=== PATIENT | female | born 1995 | race African-American/Black ===

== ENCOUNTER 2017-06-02 16:01 | Emergency (ER) | payer OTHER ==
[~2017-06-02 16:01] MED LIST: ALBU8I INH; FEXO180 PO; FLUT1SPR9 EACH NARE; MONT10TA2 PO
[2017-06-02 16:02] VITALS: BP 131/86; PULSE 69; RESP 12; TEMP 98.4; O2SAT 98
--- NOTE | 2017-06-02 18:24 | PD ---
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 Patient denies any urinary symptoms. No abdominal pain or fevers. Started in november. Patient rates her pain a 4 out of 10. There are no alleviating or exacerbating factors. Patient denies any recent sexual contact. She further denies any fever, chills , or cold clubbing, chest pain or shortness of breath. She reports a history of bacterial vaginosis and states that she was treated for this in the past. [facility] Past Medical History Medical History: Denies Significant Hx ?: Not LMP: 05/19/17 Social History Tobacco Use: No Allergies-Medications (Allergen,Severity, Reaction): Coded Allergies: No Known Allergies (Unverified , 09/09/15) Reported Meds & Prescriptions Reported Meds & Active Scripts Active Ventolin Hfa (Albuterol Sulfate) 8 Gm Aero 2 Puff INH Q6 * SHAKE WELL BEFORE USE * Singulair (Montelukast Sodium) 10 Mg Tab 10 Mg PO HS Flonase Allergy Relief (Fluticasone Propionate (Nasal)) 50 Mcg/Act Spr 2 [place] EACH NARE DAILY Jewell Allergy (Fexofenadine Hcl) 180 Mg Tab 180 Mg PO DAILY Review of Systems Except as stated in HPI: all other systems reviewed are Neg Genitourinary: Positive: Dysuria, Discharge Skin: Positive Itching Physical Exam Narrative GENERAL: Well-developed, well-nourished, alert female. Appearing in no acute distress. SKIN: Warm and dry. HEAD: Normocephalic. EYES: No scleral icterus. No injection or drainage. CARDIOVASCULAR: Regular rate RESPIRATORY: No accessory muscle use, no nasal flaring, normal respiratory rate MUSCULOSKELETAL: No cyanosis, or edema. Data Data Last Documented VS Vital Signs Date Time Temp Pulse Resp B/P (MAP) Pulse Ox O2 Delivery O2 Flow Rate FiO2 06/02/17 16:02 98.4 69 12 131/86 (101) 98 MDM Medical Decision Making Medical Screen Exam Complete: Yes Emergency Medical Condition: Yes Interpretation(s) Vital Signs Date Time Temp Pulse Resp B/P (MAP) Pulse Ox O2 Delivery O2 Flow Rate FiO2 06/02/17 16:02 98.4 69 12 131/86 101 98 Differential Diagnosis Bacterial vaginosis versus Gisell versus STD versus UTI versus other Narrative Course Patient is a 21-year-old female that was initially seen in triage. She is well- appearing, her vital signs are stable. She is awaiting bed placement. Patient Yee Hammonds has decided to leave the hospital against medical advice. This patient has the capacity to refuse care and understands the risks of leaving, including permanent disability and/or , and has had an opportunity to ask questions about her condition. The patient has been informed that she may return for care at any time, and follow up has been arranged/ advised. Diagnosis Primary Impression: Left against medical advice Rossi Martinez Jun 02, 2017 18:24
== END 2017-06-02 17:42 | disposition left against medical advice (07) ==
LOC: NED 16:01
DX: N89.8 Other specified noninflammatory disorders of vagina (principal); R21 Rash and other nonspecific skin eruption
CPT/HCPCS: 99281